=== PATIENT | female | born 1990 | race Caucasian/White ===

== ENCOUNTER 2017-03-18 06:24 | Day surgery (SDC) | payer OTHER ==
--- NOTE | 2017-03-17 18:06 | Pre-Procedure Note/Attestation ---
Pre-Procedure Note/Attestation Complete Prior to Procedure Planned Procedure: bilateral Procedure Narrative: 1. Bilateral tonsillectomy 2. Indirect exam of nasopharynx 3. Possible adenoidectomy Indications for Procedure Pre-Operative Diagnosis: Recurrent tonsillitis Attestation I attest that I discussed the nature of the procedure; its benefits; risks and complications; and alternatives (and the risks and benefits of such alternatives ), prior to the procedure, with the patient (or the patient's legal entry level account representative). I attest that, if there was a reasonable possibility of needing a blood transfusion, the patient (or the patient's legal entry level account representative) was given the [facility] standardized written summary, pursuant to the Mayo Sajan Blood Safety Act ([place] Health and Safety Code # 1645, as amended). I attest that I re-evaluated the patient just prior to the surgery and that there has been no change in the patient's H&P- AIDEE BUCKNER Mar 17, 2017 18:06
[~2017-03-18] VITALS: Ht 162.6 cm; Wt 50.8 kg
[2017-03-18] VITALS (11 sets, daily range): BP systolic 104–120; BP diastolic 70–79
--- NOTE | 2017-03-18 04:16 | Pre-op HX & Phy Repo 2 SIG ---
DATE OF SURGERY: 03/18/2017. INDICATION FOR CONSULT: Preoperative history and physical for this 26-year-old female, who has recurrent tonsillitis, who is having a bilateral tonsillectomy tomorrow and possible adenoidectomy. PAST MEDICAL HISTORY: Unremarkable for heart, liver, lung, kidney, tobacco, alcohol, or chemical disease. PAST SURGICAL HISTORY: [place] teeth without any complications. MEDICATIONS: Takes control pills. ALLERGIES: She has no known drug allergies. SOCIAL HISTORY: She is single. No children. Denies history of alcohol or drugs. She works in [employer]. FAMILY HEALTH HISTORY: Breast cancer, multiple sclerosis, and hypertension. She is on a paleo diet. PHYSICAL EXAMINATION: VITAL SIGNS: Height 5 feet 4 inches, weight 110 pounds. BMI 18.88. HEENT: Head is normocephalic. Eyes, PERRLA, EOMI. Lips, tongue, pharynx, and neck all normal. Mouth, she has 3+ bilateral tonsils, which are no longer red, but had been in the past. HEART: Normal S1 and S2. No S3 or S4. No murmur, bruit, gallop, or rub. ABDOMEN: Soft and nontender. Normoactive bowel sounds. GENITOURINARY: Not done as this is not indicated for the surgery and she is followed on a regular basis. BREASTS: Not done as this is not indicated for the surgery and she is followed on a regular basis. EXTREMITIES: Grossly normal. NEUROLOGIC: Cranial nerves II through XII grossly normal. ASSESSMENT: The patient is stable for surgery tomorrow, which is bilateral tonsillectomy and possible adenoidectomy. PLAN: As above. Rolf Flores M.D. DR: Lubna JOB#: [id number] CC: NENA
[~2017-03-18 06:24] MED LIST: NUVARING VAGIN1 EAC1 VG
[2017-03-18] MEDS ORDERED: Lidocaine 1% MPF 10mg/ml 5ml ONE (06:25)
[2017-03-18] MEDS ORDERED: LR 1000ml ONE (06:25)
[2017-03-18] MEDS ORDERED: Sterile Water Irrig 1000ml IRRIG ONE (06:25)
[2017-03-18] MEDS ORDERED: Metoclopramide 10mg/2ml Inj ONE (06:25)
[2017-03-18] MEDS ORDERED: Midazolam 2mg/2ml Inj ONE (06:25)
[2017-03-18] MEDS ORDERED: fentaNYL 100 mcg/2 mL IV ONE (06:25)
[2017-03-18] MEDS ORDERED: NS Irrig 1000ml ONE (06:25)
[2017-03-18] MEDS ORDERED: Dexamethasone 4mg/ml vial ONE (06:25)
[2017-03-18] MEDS ORDERED: Propofol 200mg/20ml IV ONE (06:25)
[2017-03-18] MEDS ORDERED: Succinylcholine 20mg/ml 10ml vial ONE (06:25)
[2017-03-18] MEDS ORDERED: Thrombin 5000 units TOPIC ONE (06:32)
[2017-03-18] MEDS ORDERED: Bupivacaine 0.5% Inj 30 ml vial INJ ONE (06:32)
[2017-03-18] MEDS ORDERED: Lidocaine 1% 10mg/ml/EPI 0.01mg/ml 50ml INJ ONE (06:32)
[2017-03-18] MEDS ORDERED: ceFAZolin sod 1 GM in D5W 55 ML IV ONE (07:15)
[2017-03-18] MEDS ORDERED: fentaNYL 100 mcg/2 mL IV PRN (07:30)
[2017-03-18] MEDS ORDERED: DiphenhydrAMINE 50mg/ml Inj IVP PRN (07:30)
--- NOTE | 2017-03-18 07:30 | Anethesia Preoperative Eval ---
Anesthesia Pre-op PMH/ROS General Date of Evaluation: Mar 18, 2017 Time of Evaluation: 07:29 Anesthesiologist: krystal ASA Score: ASA 1 Mallampati Score Class I : Soft palate, uvula, fauces, pillars visible Class II: Soft palate, uvula, fauces visible Class III: Soft palate, base of uvula visible Class IV: Only hard plate visible Mallampati Classification: Class I Surgeon: Sandra Diagnosis: Tonsilitis Surgical Procedure: tonsillectomy Anesthesia History: none Family History: no anesthesia problems Allergies: Coded Allergies: LACTOSE (Verified Adverse Reaction, Severe, 03/17/17) DIARRHEA,ABD PAIN,GAS Medications: see eMAR Past Medical History Cardiovascular: Denies: HTN, CAD, DE, valve dz, arrhythmia, other Pulmonary: Denies: asthma, COPD, FRANKY, other Gastrointestinal/Genitourinary: Denies: GERD, CRI, ESRD, other Neurologic/Psychiatric: Denies: dementia, CVA, depression/anxiety, TIA, other HEENT: Denies: cataract (L), cataract (R), glaucoma, [place] (L), [place] (R), other Hematology/Immune: Denies: anemia, DVT, bleeding disorder, other Musculoskeletal/Integumentary: Denies: OA, RA, DJD, DDD, edema, other PSxH Narrative: hymenectomy Anesthesia Pre-op Phys. Exam Physician Exam Last Vital Signs Date Time Temp Pulse Resp B/P (MAP) Pulse Ox O2 Delivery O2 Flow Rate FiO2 03/18/17 07:00 98.0 97 18 120/72 97 Room Air Constitutional: NAD Neurologic: CN 2-12 intact Cardiovascular: RRR Respiratory: CTA Gastrointestinal: S/NT/ND Airway Exam Mallampati Classification 1 Mallampati Score: Class I Neck: normal TMD: 3fb ROM: full Teeth: other - minor chip on the front incisior (right) Dentures: upper, lower Anesthesia Pre-op A/P Labs Urine Test Test 03/18/17 06:35 Urine HCG, Qualitative Negative Studies Pre-op Studies: EKG - sr Risk Assessment & Plan Assessment: healthy patient Plan: general Status Change Before Surgery: No Pre-Antibiotics Drug: ancef Given Within 1 Hr of Incision: Yes Time Given: 07:35 AVERY BRAN CRNA Mar 18, 2017 07:30
[2017-03-18] MEDS ORDERED: Acetaminophen (Non formulary) 100 ML IV ONE (08:00)
--- NOTE | 2017-03-18 08:11 | Brief Operative Note ---
Immediate Post Operative Note Operative Note Chief Complaint: Recurrent tonsillitis Pre-op Diagnosis: Recurrent tonsillitis Procedure: 1. Bilateral tonsillectomy 2. Indirect mirror exam nasopharynx Post-op Diagnosis: same as pre-op Surgeon: Renato Buckner Refinery Operator Vapor Recovery Unit: none Additional Surgeons: none Anesthesiologist: Phyllis Fletcher CRNA Anesthesia: general Specimen: yes - Right and left tonsil Complications: none Condition: stable Fluids: D5LR 500cc Estimated Blood Loss: volume - 10cc Drains: none Packing: none Implant(s) used?: No AIDEE BUCKNER Mar 18, 2017 08:11
[2017-03-18] MEDS ORDERED: Norco 5mg/325mg tab ORAL PRN (08:15)
[2017-03-18] MEDS ORDERED: HYDROmorphone 1mg/ml Carpuject SUBQ PRN (08:15)
--- NOTE | 2017-03-18 08:25 | Discharge Instructions ---
Discharge Instructions Discharge Instructions Follow up with: Dr. Buckner in his office next week-pt has appt already Diet: clear liquid Resume Normal Activity?: No Pneumonia Vaccine: pt refused vaccine Influenza Vaccine (Dec to May): pt refused vaccine Follow Up Orders pt has printed instructions reviewed and given to her at her pre op appt. in my office last week along with Rx for [place] and Amoxicillin. Return to Work/School on: Apr 01, 2017 For Surgical Patients Contact your physician for: bleeding, pain, tenderness, redness, swelling, yellowish discharge in the op. site For Congestive Heart Failure Reminder Report to your physician any weight gain of 5 pounds or more in one week. AIDEE BUCKNER Mar 18, 2017 08:24
--- NOTE | 2017-03-18 08:33 | Immediate Post-Op Evaluation ---
Immediate Post-Op Evalulation Immediate Post-Op Evalulation Procedure: Tonsillectomy Date of Evaluation: Mar 18, 2017 Time of Evaluation: 08:15 IV Fluids: 500 Blood Pressure Systolic: 109 Blood Pressure Diastolic: 68 Pulse Rate: 99 Respiratory Rate: 14 O2 Sat by Pulse Oximetry: 100 Temperature (Fahrenheit): 98.0 Pain Score (1-10): 0 Nausea: No Vomiting: No Complications none Patient Status: awake, reacts, patent Hydration Status: adequate Drug: ancef Given Within 1 Hr of Incision: Yes Time Given: 07:35 AVERY BRAN CRNA Mar 18, 2017 08:33
--- NOTE | 2017-03-18 09:43 | 48 Hour Post Anesthesia Eval ---
Post Anesthesia Evaluation Procedure: Tonsillectomy Date of Evaluation: Mar 18, 2017 Time of Evaluation: 09:42 Blood Pressure Systolic: 118 0: 75 Pulse Rate: 74 Respiratory Rate: 14 O2 Sat by Pulse Oximetry: 100 Airway: patent Nausea: No Vomiting: No Hydration Status: adequate Cardiopulmonary Status: stable Mental Status/LOC: patient returned to baseline Follow-up Care/Observations: na Post-Anesthesia Complications: none Follow-up care needed: N/A AVERY BRAN CRNA Mar 18, 2017 09:43
--- NOTE | 2017-03-18 18:45 | Operative Note - Dictated ---
DATE OF OPERATION: 03/18/2017 SURGEON: Rolf Flores M.D. SANITARY PLUMBER: None. ANESTHESIOLOGIST: Phyllis Fletcher CRNA. ANESTHESIA: Oral endotracheal anesthesia with 10 mL 1% lidocaine in 1:100,000 epinephrine at the beginning of the case, 5 mL in either tonsillar bed. At the end of the case, total of 7 mL between the two tonsillar beds of 0.5%, Sensorcaine with 1:200,000 epinephrine. INDICATION FOR SURGERY: Recurrent tonsillitis. PREOPERATIVE DIAGNOSIS: Hypertrophied bilateral recurrent tonsil hypertrophy and infection. POSTOPERATIVE DIAGNOSIS: Hypertrophied bilateral recurrent tonsil hypertrophy and infection. PROCEDURE: 1. Bilateral tonsillectomy. 2. Indirect mirror exam of nasopharynx. TECHNIQUE: The patient was prepped and draped in usual manner. Time-out was performed. All agreed as the procedure to be done. Antibiotic and Decadron had been given. I then placed a McIvor mouth gag with the appropriate tongue blade and suspended this off the equipment table. I then injected the tonsillar beds as noted above and anesthesia portion. Attention was then placed to the left tonsil first. Grabbed with a curved Allis, started from the anterior superior to posterior inferior direction setting of 12 and 14 with electrocautery. The left tonsil was then removed completely and sent for pathology separately. I then turned my attention to the right tonsil. Superior pole was grasped with a curved Allis. Dissected from the anterior superior to inferior posterior direction with electrocautery set between 12 and 14. The right tonsil was also sent for permanent section separately. I then put down the McIvor mouth gag for a minute, put it back up, there was no bleeding. Injected with Sensorcaine epinephrine mixture. Put down the mouth gag for another minute to elicit any bleeding as blood vessels had been stretched and may not indicate bleeding. However, mouth gag after a minute was then opened up again. There was no bleeding. Thrombin was placed in the tonsillar beds bilaterally. Airway suctioned. McIvor mouth gag was removed. Sponge and needle count was correct per all in the room. ESTIMATED BLOOD LOSS: 10 mL. COUNTS: None. DRAINS: None. The patient was awake and alert, and stable in the operating room and in the recovery room 10 minutes later without bleeding. Rolf Flores M.D. DR: KANCHAN JOB#: [id number] CC:
== END 2017-03-18 10:15 | disposition home or self-care (01) ==
LOC: SUR 06:24
DX: J03.91 Acute recurrent tonsillitis, unspecified (principal); Z79.3 Long term (current) use of hormonal contraceptives; Z80.3 Family history of malignant neoplasm of breast; Z82.49 Family history of ischemic heart disease and other diseases of the circulatory system; Z91.011 Allergy to milk products
CPT/HCPCS: 42826; 81025; J0330; J0690; J1100; J1200; J2250; J2405; J2704; J2765; J3010; J3490; J7120; 94003; 94150

== ENCOUNTER 2017-03-23 21:37 | Observation (INO) | payer OTHER ==
[~2017-03-23] VITALS: Ht 162.6 cm; Wt 49.9 kg
[2017-03-24 02:40] VITALS: BP 112/60
[2017-03-24 04:00] VITALS: BP 107/70
[2017-03-24 08:00] VITALS: BP 119/71
[2017-03-24] MEDS ORDERED: Morphine Sulfate 2mg/ml Inj IVP PRN ×2 (08:00)
[2017-03-24] MEDS ORDERED: Potassium Chloride 20 MEQ in D5 1/2NS 1,000 ML IV SCH (09:20)
--- NOTE | 2017-03-24 10:05 | General Progress Note ---
Progress Note Progress Note ENT Initial note Pt is 1 week post op tonsillectomy by me. Bleeding last night-admitted via Dr. Barcenas. No bleeding greater than 10 hours. Pt seen and evaluated-note dictated. OK to go home if labs are all OK-will discuss with Dr. Barcenas. AIDEE BUCKNER Mar 24, 2017 10:04
--- NOTE | 2017-03-24 10:06 | General Progress Note ---
Progress Note Progress Note Addendum-pt has appt to see me at 1 PM-she is aware. She was to see me at 11AM today in my office-seen here instead. AIDEE BUCKNER Mar 24, 2017 10:06
[2017-03-24 10:23] LABS: BASOPHILS % (AUTO) 0.8 % (0.0-2.0); EOSINOPHILS % (AUTO) 0.4 % (0.0-3.0); HEMATOCRIT 41.2 % (37.0-47.0); HEMOGLOBIN 13.6 G/DL (12.0-16.0); LYMPHOCYTES % (AUTO) 27.3 % (20.0-45.0); MEAN CORPUSCULAR VOLUME 93 FL (80-99); MONOCYTES % (AUTO) 6.6 % (1.0-10.0); NEUTROPHILS % (AUTO) 64.9 % (45.0-75.0); PLATELET COUNT 238 K/UL (150-450); RED BLOOD COUNT 4.45 M/UL (4.20-5.40); RED CELL DISTRIBUTION WIDTH 10.6 % (11.6-14.8); WHITE BLOOD COUNT 5.9 K/UL (4.8-10.8)
[2017-03-24 10:38] LABS: ANION GAP 11 mmol/L (5-15); BLOOD UREA NITROGEN 10 mg/dL (7-18); CALCIUM 9.1 MG/DL (8.5-10.1); CARBON DIOXIDE 22 MMOL/L (21-32); CHLORIDE 104 MMOL/L (98-107); CREATININE 0.8 MG/DL (0.55-1.30); SODIUM 137 MMOL/L (136-145)
--- NOTE | 2017-03-24 11:14 | History & Physical ---
History and Physical History & Physicial Dictated for Int Med-Dr Barcenas no. [id number]. SHANTE ARTHUR Mar 24, 2017 11:14
[2017-03-24 12:00] VITALS: BP 115/73
--- NOTE | 2017-03-24 15:45 | Consultation ---
DATE OF CONSULTATION: 03/24/2017 CONSULTING PHYSICIAN: Rolf Flores M.D. REQUESTING PHYSICIAN: Carl Barcenas M.D. INDICATION FOR CONSULTATION: This is a 26-year-old female, I did tonsillectomy on last week approximately seven days ago. This late last night, she developed some bleeding and went to [facility] emergency room. They put her on ice chips, the bleeding stopped. It lasted for about 2 hours per the patient. She was transferred to [facility] about midnight. I got a message at 7:03 this morning regarding this patient that she has been admitted. I then called the hospital. She was stable, had not bled. Since she had come here at midnight and it is now approximately 10 o'clock and she has had no bleeding, it has been 10 hours. Her laboratories are pending PT, PTT, and CBC. I did discuss with her how she is doing. Otherwise, she has been drinking water and everything has been fine. She has tried various protein drinks, some make her feel a little nauseous and some do not. PHYSICAL EXAMINATION: When I looked in her mouth in the inferior pole of the right tonsil, there is a small little bleb, where she bled from I suspect and is where [facility] doctors told her she had bled from. The rest of the tonsillar beds are well healed and appear not to have any issues. She is talking fine. Her heart rate is 83. Her respiratory rate was actually 14. Blood pressure was last taken at 4 in the morning was 107/70, but she does run low and her pulse oximetry was 98 at that time. Her temperature is 98.8 orally. ASSESSMENT: It sounds like she had a small little bleed from the right inferior tonsil. It has not bled for 10 hours. PLAN: Pending normal laboratories coming back meaning she does not have an abnormal PT, PTT, or very low hematocrit. She should be able to go home. Also, I want to make sure she is not dehydrated. I will discuss this with Dr. Barcenas since he is the admitting physician, he will be discharging her. If there are any issues then she should stay overnight and I will see her in the morning and of course be available prior to that. Thank you very much for asking my opinion in the care and treatment of this patient. Rolf Flores M.D. DR: SHYAM JOB#: [id number] CC:
--- NOTE | 2017-03-24 16:30 | History and Physical Report ---
DATE OF ADMISSION: 03/24/2017 CHIEF COMPLAINT: The patient is a 26-year-old white female, who presents with a chief complaint of tonsil hemorrhage. HISTORY OF PRESENT ILLNESS: The patient is status post tonsillectomy on 03/18/[address] Flores. The patient had an appointment with Dr. Flores today. Last evening on 03/23/2017, the patient began to experience bright red blood from the tonsil surgery site. The patient initially presented to [facility] emergency room. The patient is transferred to [facility] for insurance purposes. The patient is admitted for postop hemorrhage from the tonsillectomy site. PAST MEDICAL HISTORY: The patient denies. PAST SURGICAL HISTORY: 1. On 03/18/2017, tonsillectomy as above. 2. Hymenectomy. CURRENT MEDICATIONS: 1. Oral contraception. 2. Unknown pain medication. ALLERGIES: No known drug allergies. SOCIAL HISTORY: The patient is single and works in [employer]. The patient denies tobacco use. The patient admits to social alcohol use. REVIEW OF SYSTEMS: CONSTITUTIONAL: The patient denies weight loss or weight gain. The patient denies fevers or chills. HEENT: The patient complains of tonsillar hemorrhage as above. The patient denies ear pain or throat pain. The patient denies headache. CARDIOVASCULAR: The patient denies palpitations or chest pain. CHEST: The patient denies wheeze or shortness of breath. ABDOMEN: The patient denies nausea, vomiting, diarrhea, or constipation. GENITOURINARY: The patient denies dysuria or increased frequency of urination. NEUROMUSCULAR: The patient denies seizures or generalized weakness. PHYSICAL EXAMINATION: VITAL SIGNS: Temperature 97.3, respirations 18, pulse 83, and blood pressure 112/60. GENERALLY: The patient is a well-developed and well-nourished thin-appearing white female, in no apparent distress. HEENT: Eyes, pupils equal and responsive to light and accommodation. Extraocular movements are intact. Throat is without hemorrhage. There is a whitish ulceration in the right tonsil otherwise without hemorrhage. NECK: Supple without lymphadenopathy. CHEST: Lungs are clear to auscultation bilaterally without wheezes or rales. CARDIOVASCULAR: Regular rate. S1 and S2 are normal without murmurs, rubs, or gallops. ABDOMEN: Soft, nontender, and nondistended. Positive bowel sounds. No evidence of hepatosplenomegaly. Currently, no rebound or guarding noted. EXTREMITIES: Negative for clubbing, cyanosis, or edema. RECTAL/GENITAL: Refused. NEUROLOGIC: Cranial nerves II through XII are grossly intact without focal deficits. Motor strength is 5/5 bilaterally. Deep tendon reflexes are 2+ plantar. LABORATORY STUDIES: WBC 5.9, hemoglobin 13.6, hematocrit 41.2, and platelets 238,000. Sodium 137, potassium 4.0, chloride 104, CO2 22, BUN 10, and creatinine 0.8. Glucose 69. Pro-time 10.4, INR 1.0, and PTT 34. ASSESSMENT: This is a 26-year-old white female. 1. Postoperative tonsillectomy hemorrhage. TREATMENT: An ENT consultation was obtained with Dr. Flores. We will follow recommendations of Dr. Flores. Hemorrhage has stopped at this point. The patient will be offered ice p.r.n. for tonsil hemorrhage. Je Martinez M.D. DR: MARTHA JOB#: [id number] CC:
--- NOTE | 2017-03-25 07:37 | Discharge Summary ---
Discharge Summary Hospital Course Date of Admission Mar 24, 2017 at 00:19 Date of Discharge Mar 24, 2017 at 12:26 Admitting Diagnosis HPI Gela Haynes is a 26 year old female who was admitted on Mar 24, 2017 at 00:19 for Tonsil Bleed Hospital Course dc summary #[id number] Discharge Medications Continued Medications: Etonogestrel/Ethinyl Estradiol (Nuvaring Vaginal Ring) 1 Each Vag.ring 1 EACH VG MONTHLY, EA Discharge Condition Upon Discharge: stable Discharge Disposition Patient was discharged to Home () Discharge Diagnoses: Discharge Instructions Discharge Instructions Special Instructions I have been assigned to complete a D/C Summary on this account. I was not involved in the patient management Eloise Sinha NP ([place]) Mar 25, 2017 07:37
--- NOTE | 2017-03-25 08:30 | Discharge Summary 2 SIG ---
DATE OF ADMISSION: 03/24/2017 DATE OF DISCHARGE: 03/24/2017 REASON FOR ADMISSION: 26-year-old female, who had undergone tonsillectomy on 03/18/[address] Flores and had an appointment with Dr. Flores on 03/23/2017, at his office, noted bright red blood from the tonsil surgery site. The patient initially presented to [facility] emergency room for evaluation, but then was transferred to [facility] for insurance purposes. The patient was admitted for postoperative hemorrhage from the tonsillectomy site. HOSPITAL COURSE: The patient admitted. Patient was started on intravenous hydration. Hemoglobin and hematocrit were stable. Bleeding stopped. Hemoglobin - 13.6 and hematocrit -41.2. Coagulation profile within normal limits. ENT consult was requested. ENT seen and evaluated the patient. Surgeon cleared the patient for discharge and follow up in the office as outpatient. Due to the rapid and an unexpected improvement in the patient's condition, the patient was discharged in one day. FINAL DIAGNOSIS: Postoperative tonsillectomy hemorrhage. DISCHARGE INSTRUCTIONS: The patient discharged home. Follow up as outpatient with surgeon as instructed. The patient was instructed to go to emergency room if bleeding recurs. Discharge medications, see medication reconciliation list. Carl Barcenas M.D. I have been assigned to dictate discharge summary on this account and I was not involved in the patient's management. Eloise Sinha ([place]) N.P. DR: FARHAD JOB#: [id number] CC: NENA
== END 2017-03-24 12:26 | disposition home or self-care (01) ==
LOC: INTOOBSV 03-24 00:19 → 4E 03-24 00:19
DX: J95.830 Postprocedural hemorrhage of a respiratory system organ or structure following a respiratory system procedure (principal); Z79.3 Long term (current) use of hormonal contraceptives
CPT/HCPCS: 36415; 80048; 83735; 84100; 85025; 85610; 85730; J3480; G0378